=== PATIENT | male | born 1975 | race Caucasian/White ===

== ENCOUNTER → 2019-01-29 07:27 | Outpatient (CLI) | payer OTHER, SELFPAY ==
--- NOTE | 2019-01-29 | DI.MRI.S_ITS ---
PROCEDURE: MR CERVICAL SPINE WO CON INDICATIONS: Right arm radiclar pain and numbness TECHNIQUE: Noncontrast sagittal T1 spin echo and T2 fast spin echo, sagittal STIR, foraminal oblique sagittal T2 fast spin echo, and axial gradient echo or T2 fast spin echo through the cervical spine. COMPARISON: None. FINDINGS: Image quality: Excellent. Alignment and Curvature: There is normal bony alignment. There is mild reversal of normal cervical spine curvature. Bone Marrow: Marrow demonstrates normal overall signal. Spinal Cord: Visualized spinal cord has normal size and signal. No cerebellar tonsillar herniation. Paraspinous Soft Tissues: No paravertebral masses. Prevertebral soft tissues are normal in thickness. C2-C3: Slight loss of the signal. No central stenosis. Moderate left facet hypertrophy. Moderate to severe left neural foraminal narrowing with compression of the exiting left C3 nerve root. C3-C4: Slight loss of the signal. No central stenosis. No neural foraminal narrowing. No neural impingement. C4-C5: Loss of the signal. Minimal, diffuse disc bulge. Mild narrowing of the central canal. No neural foraminal narrowing. No neural impingement. C5-C6: Loss of the signal. Mild, diffuse disc bulge and a small left central disc protrusion. Disc protrusion abuts and slightly flattens anterior left aspect of the cervical spinal cord. Moderate narrowing of the central canal. No neural foraminal narrowing. C6-C7: Loss of the signal. Mild, diffuse disc bulge. Small left central disc protrusion. Mild narrowing of the central canal. No neural foraminal narrowing. No neural impingement. C7-T1: Normal appearance. IMPRESSION: 1. Mild multilevel degenerative disc disease 2. Moderate left C2-C3 facet arthropathy. 3. Moderate C5-C6 central canal narrowing. Mild C4-C5 and C6-C7 central canal narrowing. 4. Moderate to severe left C2-C3 neural foraminal narrowing. 5. Compression of the exiting left C3 nerve root secondary to left C2-C3 neural foraminal narrowing. Please correlate with clinical data. Dictated by: Ema Li MD, PhD on 01/29/2019 at 11:01 Approved by: Ema Li MD, PhD on 01/29/2019 at 11:15
== END ==
PROVIDERS: Visit Provider Family Medicine
DX: M47.22 Other spondylosis with radiculopathy, cervical region (principal); M50.11 Cervical disc disorder with radiculopathy, high cervical region; M48.02 Spinal stenosis, cervical region; R20.0 Anesthesia of skin
CPT/HCPCS: 72141

== ENCOUNTER → 2019-08-06 12:12 | Outpatient (CLI) | payer OTHER, SELFPAY ==
--- NOTE | 2019-08-06 | DI.MRI.S_ITS ---
PROCEDURE: MR WRIST RT WO CON INDICATIONS: right wrist pain TECHNIQUE: Noncontrast coronal proton density fast spin echo and T2 fast spin echo with fat saturation; coronal 3-D gradient echo, axial T1 spin echo and T2 fast spin echo with fat saturation, sagittal T1 spin echo through the wrist. COMPARISON: None. FINDINGS: Image quality: Excellent. Bones and cartilage: The carpal bones are normally aligned. No bone marrow contusions or fractures. No evidence for avascular necrosis. Overlying cartilage surfaces appear normal. Carpal ligaments: The scapholunate and lunotriquetral ligaments appear intact. In the absence of intra-articular contrast, the extrinsic carpal ligaments are not well identified. On sagittal images, the pisohamate ligament appears intact. Triangular fibrocartilage complex: The triangular fibrocartilage appears intact. The adjacent meniscal homolog appears normal in the absence of intra-articular contrast. The extensor carpi ulnaris tendon is normal in location and morphology. Tendons and soft tissues: The carpal tunnel structures appear normal, including the median nerve. The ulnar nerve appears normal within Guyon's canal. All six extensor tendon compartments demonstrate normal morphology, without pathologic tendon sheath fluid. Small ganglion cyst measuring 0.8 x 0.9 x 0.2 cm seen on image 15/5, image 11/9, lung the dorsal surface of the carpus at the level of the scapholunate interval. IMPRESSION: Subcentimeter ganglion cyst along the dorsal aspect of the carpus. Elsewhere, negative examination as detailed above. Dictated by: Joshua Frost M.D. on 08/06/2019 at 14:08 Approved by: Joshua Frost M.D. on 08/06/2019 at 14:34
--- NOTE | 2019-08-06 | DI.MRI.S_ITS ---
PROCEDURE: MR BRAIN (IAC) WWO CON INDICATIONS: Unspecified sensorineural hearing loss TECHNIQUE: Noncontrast sagittal T1 spin echo, axial FLAIR, axial gradient echo, axial diffusion and ADC through the brain. Axial thin-slice 3D CISS, coronal TruFISP, axial T1 spin echo with fat saturation through the internal auditory canals. After the administration of contrast, thin slice axial and coronal T1 spin echo with fat saturation through the internal auditory canals, and axial T1 spin echo with fat saturation through the brain. COMPARISON: None. FINDINGS: Image quality: Excellent. Cerebellopontine angles: No cerebellopontine angle masses. Inner ear structures appear normally formed. No suspicious enhancement in the internal auditory canal or along the course of the 7th cranial nerve. CSF spaces: Ventricles are normal in size and shape. No extra-axial fluid collections. Basal cisterns are patent. Brain: No intracranial bleeds or mass effects. Leonard-white matter interface is intact. No abnormal intracranial enhancement. Diffusion weighted images demonstrate no acute ischemic insults. Brainstem appears normal. Normal intravascular flow voids are present. Skull and face: Calvarial marrow signal is normal. Orbits appear normal. Right maxillary mucous retention cyst or polyp. IMPRESSION: No discrete mass or suspicious abnormal enhancement involving the IAC or cerebellopontine angles bilaterally. Dictated by: Joshua Frost M.D. on 08/06/2019 at 14:34 Approved by: Joshua Frost M.D. on 08/06/2019 at 14:45
== END ==
PROVIDERS: PCP Family Medicine; Referring Provider Otolaryngology; Visit Provider Otolaryngology
DX: H90.5 Unspecified sensorineural hearing loss (principal); H93.13 Tinnitus, bilateral; M25.531 Pain in right wrist; M67.431 Ganglion, right wrist
CPT/HCPCS: 70553; 73221; A9579

== ENCOUNTER → 2019-11-10 09:28 | Outpatient (CLI) | payer OTHER, SELFPAY ==
[2019-11-10 11:42] LABS: Add Manual Diff / Slide Review NO; Basophils Absolute Auto 0 /uL (0-100); Basophils Percent Auto 0.4 % (0-2); Eosinophils Absolute Auto 200 /uL (0-450); Eosinophils Percent Auto 1.7 % (2-4); Hematocrit 46.9 % (41-53); Hemoglobin 16.7 g/dL (13.5-17.5); Lymphocytes Absolute Auto 1700 /uL (1100-4500); Lymphocytes Percent Auto 17.6 % (25-40); Mean Corpuscular HGB Conc 35.5 % (30-36); Mean Corpuscular Hemoglobin 31.8 PG (26-34); Mean Corpuscular Volume 89.4 fL (80-100); Monocytes Absolute Auto 800 /uL (0-900); Monocytes Percent Auto 8.3 % (3-14); Neutrophils Absolute Auto 7000 /uL (1500-7000); Platelet Count 242 X10^3/uL (150-400); Red Blood Cell Count 5.25 X10^6/uL (4.5-5.9); Red Cell Distribution Width 12.7 % (11.6-14.8); White Blood Cell Count 9.7 X10^3/uL (4.5-11.0)
[2019-11-11 10:57] LABS: COVID19 Sendout NOT DETECTED
== END ==
PROVIDERS: Registered Nurse; PCP Family Medicine; Referring Provider Orthopaedic Surgery; Visit Provider Orthopaedic Surgery
DX: Z11.59 Encounter for screening for other viral diseases (principal)
CPT/HCPCS: 36415; 85025; 87635

== ENCOUNTER 2019-11-13 06:35 | Day surgery (SDC) | payer OTHER, SELFPAY ==
[2019-11-10 10:52] VITALS: BMI 27.9
[2019-11-13] VITALS (14 sets, daily range): BP systolic 112–144; BP diastolic 75–97; PULSE 63–72; RESP 9–17; TEMP 36–36.9; O2SAT 85–98; BMI 27.9
--- NOTE | 2019-11-13 | DI.RAD.S_ITS ---
PROCEDURE: XR CERVICAL SPINE 2V OR 3V INDICATIONS: C5-6 ACDF (MOBI-C) TECHNIQUE: Fluoroscopic images were obtained during an operative procedure and submitted for interpretation following the completion of the procedure. COMPARISON: [facility], , MR CERVICAL SPINE WO CON, 01/29/2019, 7:37. FINDINGS: These fluoroscopic images were performed for intraoperative localization. On these images, disc fusion changes are seen at C5-C6. Please correlate with intraoperative findings. IMPRESSION: Normal intraoperative examination. Dictated by: Shaw Rodriguez M.D. on 11/13/2019 at 8:21 Approved by: Shaw Rodriguez M.D. on 11/13/2019 at 8:22
--- NOTE | 2019-11-13 07:30 | PM.PREOP ---
Pre-operative Note COVID-19 COVID-19 status: Negative Result date/Date tested (Pos, Neg/Pending): 11/10/19 Interval Note History & Physical reviewed/Exam performed by Physician: Yes Changes to H&P: No
--- NOTE | 2019-11-13 07:33 | SUR.PREOP ---
pt reports has chronic right arm numbness and tingling.
--- NOTE | 2019-11-13 07:34 | P.OP_ITS ---
Operative Date/Time/Diagnoses Date of procedure: 11/13/19 Time of procedure: 09:08 Pre-op diagnosis: Cervical disc herniation with radiculopathy Post-op diagnosis: same Procedure & Clinicians Procedure: C5-6 anterior cervical diskectomy and artificial disc replacement Use of microscope Same procedure as scheduled: Yes Indications: [age] year old male with intractable pain from cervical disc herniation. They had failed conservative management and requested operative intervention. Risks and benefits of surgery were discussed and appropriate consents were obtained. Surgeon: [employer]oir Engineer: Brennen Pappas Anesthesia Type: General Operative Notes Findings: none Closure Type: primary Specimen(s): none sent Prosthetic devices, grafts, tissues, transplants, or devices: Sayda Mobi-C Estimated Blood Loss (mL): 5 Procedure in detail: Patient was brought to the operating room and intubated on the table. A time-out was performed. Preoperative antibiotics were given. The neck was prepped and draped in the standard sterile fashion. Using a skin fold, we made a 3 cm oblique incision on the left side. We used Bovie to go through the platysma and then did a standard anterolateral blunt dissection down to the precervical fascia. Fascia was nicked and elevated up. A marker was placed and x-ray was taken for localization. We then subperiosteally elevated up the longus colli muscles. Self-retaining retractors were placed. Diamondhead pins were placed under x-ray guidance to be parallel to the endplates. We then brought in the microscope. A scalpel used to perform an annulotomy. We then used a combination of pituitaries and curettes and Kerrison to perform a complete anterior diskectomy at C5-6. We took down the PLL and used Kerrison to remove any posterior disc material and osteophytes. At the end we could from the nerve hook cephalad caudally and out the foramen and everything was opened. We distracted open with the parallel electronics technology instructor. We then used the horseshoes for sizing. We then used the trials. We then inserted a 15 x 15 x 5 mm size Mobi-C artificial disc replacement under fluoroscopic guidance for positioning. The traction was released and x-ray was checked again. The self-retaining retractors and Diamondhead pins were removed and final x-rays taken. The wound was irrigated. There was no bleeding. The carotid was beating nicely. The platysma was closed. The superficial was close d. The skin was closed. A sterile dressing was placed. They were then extubated and brought to recovery room with no complications. Complications: none Post-operative Condition: stable Disposition: PACU Plan for aftercare: Outpatient. Soft collar for comfort. Follow-up 1.5 weeks
[2019-11-13] MEDS: LACTATED RINGERS 1,000 ML 42 ML IV ×2 (07:39→09:23)
[2019-11-13] MEDS: CEFAZOLIN 2 GM/100 ML FROZ.PIGGY IV (07:43)
--- NOTE | 2019-11-13 08:12 | SUR.OPER ---
Supine, head on gel donut. Arms padded with gel pads, tucked at sides, towel roll under shoulders. Safety belt at thigh. Legs uncrossed.
[2019-11-13] MEDS: BUPIVACAINE 0.25% W/ EPI 30 ML VIAL INJ (08:20)
[2019-11-13] MEDS: SODIUM CHLORIDE 0.9% 1,000 ML, GENTAMICIN 80 MG IRR (08:21)
[2019-11-13] MEDS: THROMBIN (RECOMBINANT) 5,000 UNIT VIAL 5000 UNIT TOP (08:21)
[2019-11-13] MEDS: fentaNYL 100 MCG/2 ML INJ IV ×2 (09:31→09:37)
[2019-11-13] MEDS: HYDROMORPHONE 2 MG INJ IV ×2 (09:33→09:40)
[2019-11-13] MEDS: OXYCODONE/ACETAMINOPHEN 5/325 TABLET 1 TAB PO ×2 (10:08→10:59)
== END 2019-11-13 11:28 | disposition home or self-care (01) ==
PROVIDERS: PCP Family Medicine; Referring Provider Orthopaedic Surgery; Visit Provider Orthopaedic Surgery
PROC: (CPT 22856; principal; 2019-11-13 07:45)
DX: M50.122 Cervical disc disorder at C5-C6 level with radiculopathy (principal); M48.02 Spinal stenosis, cervical region; G47.30 Sleep apnea, unspecified
CPT/HCPCS: 22856; 72040; 76000; C1776; J0690; J1100; J1170; J2250; J2405; J2704; J3010